=== PATIENT | male | born 1950 | race Caucasian/White ===

== ENCOUNTER → 2022-11-05 08:49 | Outpatient (BNVA) | payer MEDICARE, OTHER, SELFPAY | PROVIDERS: PCP Surgery; Visit Provider Nurse Practitioner Family | DX: G47.33 Obstructive sleep apnea (adult) (pediatric) (principal); R20.1 Hypoesthesia of skin | CPT/HCPCS: 99202 ==

== ENCOUNTER 2023-03-18 12:09 | Outpatient (REF) | payer MEDICARE, OTHER, SELFPAY ==
--- NOTE | 2023-03-18 10:00 | EMG_ITS ---
Bilateral tibial and peroneal motor studies were performed. Bilateral sural and superficial peroneal sensory studies were performed. Tibial H reflexes were obtained and paraspinal muscles were tested with the needle. IMPRESSION: 1. Chronic bilateral lower lumbar radiculopathy. 2. 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 MD MARY Cerrato/LANDRY / [id number]
== END 2023-03-18 12:10 | disposition home or self-care (01) ==
LOC: HO.NEURO 12:09
PROVIDERS: PCP Surgery; Visit Provider Nurse Practitioner Family
DX: R20.0 Anesthesia of skin (principal); R20.1 Hypoesthesia of skin; I87.2 Venous insufficiency (chronic) (peripheral)
CPT/HCPCS: 95886; 95911

== ENCOUNTER 2023-05-26 14:44 | Outpatient (AMB) | payer MEDICARE, OTHER, SELFPAY ==
[2023-05-26 14:52] VITALS: BP 130/74; PULSE 52; O2SAT 97; BMI 36.6
--- NOTE | 2023-05-26 14:52 | A.OFFVIS_ITS ---
Intake Vital Signs 05/26/23 14:52 Height 5 ft 9 in Weight 248 lb BMI 36.6 BP 130/74 Blood Pressure Location Rt brachial Position Sitting Pulse 52 Pulse Source Pulse Oximeter Pulse Oximetry (%) 97 Oxygen Delivery Method Room Air Intake Visit Reasons: 4m f/u neuropathy - LVM Intake Note: Patient presents for 4 month follow up. Patient states I'm just here for my results Allergies adhesive tape Allergy (Unknown, Verified 05/26/23 14:53) Unknown Seasonal Allergies Allergy (Unknown, Verified 05/26/23 14:53) Unknown Medication List - Last Reconciled 05/26/23 by MOISES Castellon aspirin 81 mg PO DAILY calcium carbonate-vitamin D3 600 mg-10 mcg (400 unit) (Calcium 600 + D(3)) 1 tab PO BID cetirizine (Zyrtec) 10 mg PO BEDTIME fluticasone propionate 50 mcg/actuation (Flonase Allergy Relief) 1 spray intranasal DAILY PRN furosemide mg PO DAILY metoprolol tartrate mg PO BID simvastatin 40 mg PO BEDTIME vitamins A,C,M-dgsr-fxnyuy 2,148 mcg-113 mg-45 mg-17.4mg (PreserVision AREDS) 2 tabs PO BID HPI HPI Comments History of Present Illness Details 73-yr-old male presents for f/u visit. Pt's , Eddie, joins via pt's phone. Pt denies any significant interval medical changes. Pt underwent BLE EMG/NCS, including paraspinals: IMPRESSION:? 1. Chronic bilateral lower lumbar radiculopathy. 2. 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 Pt continues to experience bilateral bottom of feet numbness. Reviewed that this started prior to his BLE swelling and his 4 lumbar surgeries. He notes it can feel like he is walking on cushions/air. His legs can feel heavy- again better since using BLE compression socks.? Pt denies any shooting, burning pain from lower back. Pt denies any foot pains. Pt has rec'd a new CPAP machine set to 8 cmH2O. Pt reports he does not feel like the machine is giving as much pressure as his previous machine. Split-night in-lab PSG reviewed form Sep 2022 at [facility]: AHI (obstructive and central) 91/hr w/ average SpO2 96% and O2 livia of 85%. Pt was tried on both CPAP and BiPAP. PAP compliance report shows: CPAP 8 cmH2O w/ EPR 2, usage > 4 hrs 100%, avergae use 8 hrs, residual AHI 11.1/hr (Central 3.1/hr and obstructive 6/hr). [facility] Medical History (Updated 05/26/23 @ 20:22 by MOISES Castellon) Atherosclerosis CKD (chronic kidney disease) Diastolic CHF History of melanoma HLD (hyperlipidemia) [place] (hard of [place]) HTN (hypertension) Kidney stones Low back pain Umbilical hernia Venous insufficiency Surgical History H/O lumbar discectomy Hx of cholecystectomy Family History Mother Heart disease Social History Alcohol intake: current Alcohol intake frequency: holidays/special occasions only Patient Tobacco Use Status: Never used Tobacco Review of Systems Const All systems reviewed & are unremarkable except as noted in HPI and below Physical Exam Vital Signs: Last Vital Signs Pulse 52 05/26/23 14:52 BP 130/74 05/26/23 14:52 Pulse Ox 97 05/26/23 14:52 Oxygen Delivery Method Room Air 05/26/23 14:52 BMI result Body Mass Index 36.6 Const General: cooperative and no acute distress Orientation/consciousness: patient oriented x3 HEENT Head: Yes normocephalic Resp Effort & Inspection: normal respiratory effort and able to speak in complete sentences Neuro General: patient oriented x3, gait normal and CN's II-XI intact bilaterally Cognition (Neuro): normal cognition Motor exam (neuro): 5/5 motor strength present throughout Extrem Other: Mild BLE pitting edema Psych Appearance: grossly normal Mental Status: mental status grossly normal Speech and movement: Normal speech and movement present Affect: normal affect Attitude: cooperative Thought process: Normal thought process present Thought content: Normal thought content present Insight: Good insight present (Psych) Judgement: Good judgement present (Psych) Assessment & Plan Assessment & Plan (1) Peripheral sensory-motor axonal polyneuropathy: Code(s): G60.8 - Other hereditary and idiopathic neuropathies (2) Mixed sleep apnea: Code(s): G47.39 - Other sleep apnea (3) Hypoesthesia: Comment: likely secondary to chronic BLE edema, venous insufficiency. Code(s): R20.1 - Hypoesthesia of skin Plan For numbness: Reviewed BLE EMG/NCS: Chronic bilateral lower lumbar radiculopathy- likely secondary to h/o low back processes/surgery. 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 Labs slips printed- pt requests to do through [employer]. No medications indicated at this time, as pt is having numbness but not pain. Continue to use compression socks. Continue cane for longer walks. ? For REINALDO/CSA: Adjusted CPAP pressure from 8 to 10 cmH2O w/ EPR 2 through [employer] [facility]- in hopes he tolertaes this better. Will check PAP compliance report in 1 week to monitor effect on residual AHI (ce ntral and obstructive events). Upon review- consider nocturnal pulse oximtery reading. Pt's home care company- [employer]. Will f/u w/ pt w/ lab results and f/u PAP compliance report. plan to f/u in cl inic in 3 months or sooner prn. Orders: Orders Vitamin B12 and Folate Today G60.8 - Other hereditary and idiopathic neuropathies, I87.2 - Venous insufficiency (chronic) (peripheral), R20.1 - Hypoesthesia of skin Comprehensive Met. Panel Today G60.8 - Other hereditary and idiopathic neuropathies, I87.2 - Venous insufficiency (chronic) (peripheral), R20.1 - Hypoesthesia of skin CRP High Sensitivity Today G60.8 - Other hereditary and idiopathic neuropathies, I87.2 - Venous insufficiency (chronic) (peripheral), R20.1 - Hypoesthesia of skin TSH reflex Free T4 Today G60.8 - Other hereditary and idiopathic neuropathies, I87.2 - Venous insufficiency (chronic) (peripheral), R20.1 - Hypoesthesia of skin Protein Electrophoresis 24HrUr Today G60.8 - Other hereditary and idiopathic neuropathies, I87.2 - Venous insufficiency (chronic) (peripheral), R20.1 - Hypoesthesia of skin Complete Blood Count Auto Diff Today G60.8 - Other hereditary and idiopathic neuropathies, I87.2 - Venous insufficiency (chronic) (peripheral), R20.1 - Hypoesthesia of skin Erythrocyte Sedimentation Rate Today G60.8 - Other hereditary and idiopathic neuropathies, I87.2 - Venous insufficiency (chronic) (peripheral), R20.1 - Hypoesthesia of skin JORGE Reflex Titer and Pattern Today G60.8 - Other hereditary and idiopathic neuropathies, I87.2 - Venous insufficiency (chronic) (peripheral), R20.1 - Hypoesthesia of skin Protein Electrophoresis, Serum Today G60.8 - Other hereditary and idiopathic neuropathies, I87.2 - Venous insufficiency (chronic) (peripheral), R20.1 - Hypoesthesia of skin Coding Level of Care Code Est Pt Level 4 (60477) Diagnoses Peripheral sensory-motor axonal polyneuropathy G60.8 Mixed sleep apnea G47.39 Hypoesthesia R20.1
== END 2023-05-26 15:46 | disposition home or self-care (01) ==
LOC: HO.HSMS 14:44
PROVIDERS: PCP Surgery; Visit Provider Nurse Practitioner Family
DX: G60.8 Other hereditary and idiopathic neuropathies (principal); G47.39 Other sleep apnea; R20.1 Hypoesthesia of skin
CPT/HCPCS: 99214

== ENCOUNTER → 2023-05-26 14:44 | Outpatient (BNVA) | payer MEDICARE, OTHER, SELFPAY | PROVIDERS: PCP Surgery; Visit Provider Nurse Practitioner Family | DX: G60.8 Other hereditary and idiopathic neuropathies (principal); G47.39 Other sleep apnea; R20.1 Hypoesthesia of skin | CPT/HCPCS: 99212 ==

== ENCOUNTER 2023-09-21 10:42 | Outpatient (AMB) | payer MEDICARE, OTHER, SELFPAY ==
[2023-09-21 10:56] VITALS: BP 142/70; BMI 37.1
--- NOTE | 2023-09-21 10:56 | MHC.OFFVIS ---
Intake Vital Signs 09/21/23 10:56 Height 5 ft 9 in Weight 251 lb BMI 37.1 BP 142/70 H Blood Pressure Location Rt brachial Intake Visit Reasons: 4m follow up neuropathy-Confirmed Intake Note: Patient presents for 4 month follow up. Patient states My only concern is I want to know what the results of my test I did at [facility]. Allergies adhesive tape Allergy (Unknown, Verified 09/21/23 11:08) Unknown Seasonal Allergies Allergy (Unknown, Verified 09/21/23 11:08) Unknown Medication List - Last Reconciled 09/21/23 by MOISES Castellon aspirin 81 mg PO DAILY calcium carbonate-vitamin D3 600 mg-10 mcg (400 unit) (Calcium 600 + D(3)) 1 tab PO BID cetirizine (Zyrtec) 10 mg PO BEDTIME fluticasone propionate 50 mcg/actuation (Flonase Allergy Relief) 1 spray intranasal DAILY PRN furosemide mg PO DAILY metoprolol tartrate mg PO BID simvastatin 40 mg PO BEDTIME vitamins A,C,U-ggmx-pnidyp 2,148 mcg-113 mg-45 mg-17.4mg (PreserVision AREDS) 2 tabs PO BID HPI HPI Comments History of Present Illness Details 73-yr-old male presents for f/u visit. He continues to have BLE numbness. He denies any BLE pain, pins & needles, cramps, stinging. He sometimes have some BLE weakness after he has done a 1.5-2 walk, may need to rely more on his cane to take a step back into house. Usually does use the handrail to go up and down the steps. He does have a f/u vascular appt- to review results of recent BLE arterial and venous studies. Pt reports Dr Alberto is now following his CPAP. He states he is sleeping well with CPAP- usually about 8 hrs per night. 05/27/23: CBC- WNL ESR- 15 NL Folate- > 20 H Vit B12- 342 NL CMP- Glucose 118 H, BUN 18, Creat 1.89 H Cardio CRP 1.4 NL SEP- NL JORGE- negative 06/09/23: 24 Hr urine Total volume 1650 24 hr protein - 165 H (norm 0-150) PFS Medical History (Updated 05/26/23 @ 20:22 by MOISES Castellon) Umbilical hernia [place] (hard of hearing) History of melanoma Low back pain HLD (hyperlipidemia) Venous insufficiency Atherosclerosis Diastolic CHF Kidney stones CKD (chronic kidney disease) HTN (hypertension) Surgical History Hx of cholecystectomy H/O lumbar discectomy Family History Mother Heart disease Social History Alcohol intake: current Alcohol intake frequency: holidays/special occasions only Patient Tobacco Use Status: Never used Tobacco Review of Systems Const All systems reviewed & are unremarkable except as noted in HPI and below Physical Exam Vital Signs: Last Vital Signs BP 142/70 H 09/21/23 10:56 BMI result Body Mass Index 37.1 Const General: cooperative and no acute distress Orientation/consciousness: patient oriented x3 HEENT Head: Yes normocephalic Resp Effort & Inspection: normal respiratory effort and able to speak in complete sentences Neuro Other: BLE- swelling, coolness to touch, left toes discolored, distal decreased sensation Slow steady gait General: patient oriented x3 and CN's II-XI intact bilaterally Cognition (Neuro): normal cognition Motor exam (neuro): 5/5 motor strength present throughout Psych Appearance: grossly normal Mental Status: mental status grossly normal Speech and movement: Normal speech and movement present Affect: normal affect Attitude: cooperative Thought process: Normal thought process present Thought content: Normal thought content present Insight: Good insight present (Psych) Judgement: Good judgement present (Psych) Assessment & Plan Assessment & Plan (1) Peripheral sensory-motor axonal polyneuropathy: Code(s): G60.8 - Other hereditary and idiopathic neuropathies (2) Venous insufficiency: Code(s): I87.2 - Venous insufficiency (chronic) (peripheral) (3) Hypoesthesia: Comment: likely secondary to chronic BLE edema, venous insufficiency. Code(s): R20.1 - Hypoesthesia of skin Plan Reviewed labs- notable for mildly elevated 24 hr total urine protein. Likely secondary to CKD. Pt is f/b renal. No prescription medications indicated at this time, as pt is having numbness but not pain. However, we could consider Nervive or Alpha-lipoic acid 600mg qd supplement- pt will discuss w/ vascular. Continue to use compression socks. Continue cane for longer walks. f/u in 6 months or sooner prn. Coding Level of Care Code Est Pt Level 3 (90173) Diagnoses Peripheral sensory-motor axonal polyneuropathy G60.8 Venous insufficiency I87.2 Hypoesthesia R20.1
== END 2023-09-21 11:42 | disposition home or self-care (01) ==
PROVIDERS: PCP Surgery; Visit Provider Nurse Practitioner Family
DX: G60.8 Other hereditary and idiopathic neuropathies (principal); I87.2 Venous insufficiency (chronic) (peripheral); R20.1 Hypoesthesia of skin
CPT/HCPCS: 99213

== ENCOUNTER → 2023-09-21 10:42 | Outpatient (BNVA) | payer MEDICARE, OTHER, SELFPAY | PROVIDERS: PCP Surgery; Visit Provider Nurse Practitioner Family | DX: G60.8 Other hereditary and idiopathic neuropathies (principal); I87.2 Venous insufficiency (chronic) (peripheral); R20.1 Hypoesthesia of skin | CPT/HCPCS: 99212 ==